=== PATIENT | female | born 1965 | race Two or more races ===

== ENCOUNTER 2021-03-13 18:02 | Emergency (ER) | payer MEDICAID ==
[~2021-03-13] VITALS: Ht 157.5 cm; Wt 49.9 kg
--- NOTE | 2021-03-13 18:21 | NUR ---
@jj, medical screening exam in progress
--- NOTE | 2021-03-13 19:01 | NUR ---
Patient was discharged to [facility] in stable condition with brisk steady gait. Written and verbal after care instructions given to patient in Persian with java technical architect ER registration staff Yarelis. Patient verbalized understanding & compliance of instructions. Patient had a copy of Dr Vazquez's dictation notes to show to [facility] ER staff and [facility]. staff electronic warfare officer Donna of [facility] accepted nursing hands off report.
== END 2021-03-13 19:01 | disposition home or self-care (01) ==
LOC: ER 18:08
DX: T20.29XA Burn of second degree of multiple sites of head, face, and neck, initial encounter (principal); T20.27XA Burn of second degree of neck, initial encounter; T21.21XA Burn of second degree of chest wall, initial encounter; X11.8XXA Contact with other hot tap-water, initial encounter; Y92.89 Other specified places as the place of occurrence of the external cause; T31.0 Burns involving less than 10% of body surface
CPT/HCPCS: A4217; A4663